=== PATIENT | female | born 1950 | race Caucasian/White ===

== ENCOUNTER → 2022-02-08 | Outpatient (CLI) | payer MEDICARE, MEDICAID | END | disposition home or self-care (01) | LOC: CT 13:12 | PROVIDERS: ATTEND Internal Medicine Cardiovascular Disease | DX: M54.31 Sciatica, right side (principal); M48.07 Spinal stenosis, lumbosacral region; M51.37 Other intervertebral disc degeneration, lumbosacral region; K57.90 Diverticulosis of intestine, part unspecified, without perforation or abscess without bleeding; M25.851 Other specified joint disorders, right hip; M16.11 Unilateral primary osteoarthritis, right hip | CPT/HCPCS: 72131; 72192 ==